=== PATIENT | male | born 1975 | race Caucasian/White ===

== ENCOUNTER 2023-11-17 09:50 | Outpatient (AMB) | payer OTHER, SELFPAY ==
--- NOTE | 2023-11-17 09:55 | A.OFFPC_ITS ---
Vital Signs 11/17/23 10:02 11/17/23 10:10 Height 5 ft 9 in Weight 205 lb 8 oz BMI 30.3 BP 144/90 H 126/88 Blood Pressure Location Rt brachial Rt brachial Position Sitting Sitting Respiration 16 Pulse 66 Pulse Source Pulse Oximeter Temp 98.3 F Temp Source Oral Pulse Oximetry (%) 97 Oxygen Delivery Method Room Air Intake Visit Reasons: [employer] BP F/U Intake Note: New patient visit Dive Master Required: No Allergies No Known Allergies Allergy (Verified 11/17/23 09:55) Medication List - Last Reconciled 11/17/23 by Hanh Webster MD clotrimazole-betamethasone 1-0.05 % 1 appl topical BID fluconazole 150 mg PO Q3D 2 doses No Known Home Meds prednisone 40 mg (2 x 20 mg) PO DAILY 5 days Tobacco use date assessed: 11/17/23 Dental Screening Dental Screen Date: 11/17/23 Did you have a dental visit in the last 12 months?: Yes Did you have a dental problem in the last 6 months where you did not have access to dental care?: No Was dental information given to patient?: Patient has dentist HPI HPI Comments History of Present Illness Details The patient is a 48 year old male with a past medical history of elevated BP, hyperlipidemia presenting to psychiatric hospital care Patient had labs for work in Aug. LDL at that time 150. He has been trying to eat a little healthier but has not started working out again like he has in the past. For the past 2 months he has been having episodes of left sided chest pressure. non exertional. no associated palpitations or shortness of breath. history of gerd this feels different. Has had a lot of stress recently. No overwhelming anxiety, no panic attacks. Family history of CAD, [place], ACS. EKG today Never colonoscopy. [facility] Medical History (Updated 11/17/23 @ 11:01 by Hanh Webster MD) Eczema GERD (gastroesophageal reflux disease) Hypercholesteremia Depression HTN (hypertension) Family History (Updated 11/17/23 @ 10:15 by Grecia Ball CMA) Mother Depression HTN (hypertension) Hypercholesteremia Cardiovascular disease Heart attack Brother Depression Father HTN (hypertension) Hypercholesteremia Lung cancer Other FH: mental illness Social History (Updated 11/17/23 @ 09:58 by Grecia Ball CMA) Housing: Apartment Patient Tobacco Use Status: Former Tobacco user Tobacco use type: Cigarette Years Smoked: 3 Highschool years e-Cigarette/Vaping Use: Never Used Second Hand Smoke Exposure: Yes (Past) service: Yes Current occupational status: employed Current occupation: [employer] Current occupational exposures/hazards: No Cognitive needs: No Hearing needs: No Vision needs: Yes (glasses) Questionnaire PHQ-9 Over the last 2 weeks, how often have you been bothered by any of the following problems? 1. Little interest or pleasure in doing things: several days 2. Feeling down, depressed, or hopeless: several days 3. Trouble falling or staying asleep, or sleeping too much: not at all 4. Feeling tired or having little energy: several days 5. Poor appetite or overeating: not at all 6. Feeling bad about yourself - or that you are a failure or have let yourself or your family down: not at all 7. Trouble concentrating on things, such as reading the newspaper or watching television: not at all 8. Moving or speaking so slowly that other people could have noticed. Or the opposite - being so fidgety or restless that you have been moving around a lot more than usual: not at all 9. Thoughts that you would be better off or of hurting yourself in some way: not at all Total score: 3 Depression Screening Interpretation: Positive Depression Screening Follow-up: Declines treatment Depression Screening Done: Yes [id number] - PHQ-9 Billing: Yes Source: Developed by Drs. Eyal Nicole, Kristy Garcia, Usman Azar and colleagues, with an educational tucker from [employer]. Thrive Questionnaire Date Thrive assessed: 11/17/23 I am a: Patient What is your living situation today?: I have a steady place to live Within the past 12 months, did the food you bought not last and you didn't have the money to get more?: Never true Within the past 12 months, did you worry whether your food would run out before you got money to buy more?: Never true Do you have trouble paying for medicines?: No Do you have trouble getting transportation to medical appointments?: No Do you have trouble paying your heating and electricity bill?: No Do you have trouble taking care of your child, family member or friend?: No Do you have trouble with day-to-day activities such as bathing, preparing meals, shopping, managing finances, etc.?: No Are you currently unemployed and looking for a job?: No Are you interested in more education?: No Please select the resources that you would like help with: None Currently or been in a relationship where the following occur: no concerns reported THRIVE Score: 0 AUDIT C Alcohol Use Questionnaire (AUDIT-C) 1. How often do you have a drink containing alcohol?: 2-4 times a month (4- 5 beers a weeks ) 2. How many drinks containing alcohol do you have on a typical day when you are drinking?: 3 or 4 3. How often do you have six or more drinks on one occasion?: Less than monthly Total Score: 4 LB-7 AMB Questionnaire LB-7 Date LB - 7 assessed: 11/17/23 Feeling nervous, anxious, or on edge: 1 = Several days Not being able to stop or control worryin = Several days Worrying too much about different things: 1 = Several days Trouble relaxin = Not at all Being so restless that it is hard to sit still: 0 = Not at all Becoming easily annoyed or irritable: 0 = Not at all Feeling afraid as if something awful might happen: 0 = Not at all Total LB-7 score (0-4 normal; 5-9 mild; 10-14 moderate; 15-21 severe): 3 Source: Developed by Drs. Eyal Nicole, Kristy Garcia, Usman Azar and colleagues, with an educational tucker from [employer]. LB-7 Assessment Billing LB-7 Assessment Tool: LB-7 Assessment 16985 Review of Systems Const Details: ROS CONSTITUTIONAL: Denies weight loss, fever and chills. HEENT: Denies changes in vision and hearing. RESPIRATORY: Denies SOB and cough. CV: Denies palpitations and CP GI: Denies abdominal pain, nausea, vomiting and diarrhea. : Denies dysuria and urinary frequency. MSK: Denies new myalgia and joint pain. SKIN: Denies rash and pruritus. NEUROLOGICAL: Denies headache PSYCHIATRIC: Denies recent changes in mood. Physical exam (Primary Care) Vital Signs: Last Vital Signs Temp 98.3 F 11/17/23 10:02 Pulse 66 11/17/23 10:02 Resp 16 11/17/23 10:02 BP 126/88 11/17/23 10:10 Pulse Ox 97 11/17/23 10:02 Oxygen Delivery Method Room Air 11/17/23 10:02 BMI result Body Mass Index 30.3 Tobacco/Smoking Status: Tobacco use Status Tobacco use date assessed 11/17/23 11/17/23 09:59 Patient Tobacco Use Status Former Tobacco user 11/17/23 09:59 Tobacco use type Cigarette 11/17/23 09:59 e-Cigarette/Vaping Use Never Used 11/17/23 09:59 PHQ-9: PHQ-9 Score PHQ-9: Total score 3 11/17/23 10:16 Depression Screening Interpretation: Positive Depression Screening Follow-up: Declines treatment Thrive Assessment: Date of Thrive Assessment Date Thrive assessed 11/17/23 11/17/23 10:16 Currently or been in a relationship where the following occur: no concerns reported Const Other: PHYSICAL EXAM: GENERAL: Alert and oriented x 3. NAD EYES: EOMI. Anicteric. HENT: Moist mucous membranes. LUNGS: Clear to auscultation bilaterally. CARDIOVASCULAR: Regular rate and rhythm. No murmur. No JVD. ABDOMEN: Soft, non-tender +bs EXTREMITIES: No edema. Non-tender. SKIN: No rashes or lesions. Warm. NEUROLOGIC: No focal neurological deficits. PSYCHIATRIC: Cooperative. Appropriate mood and affect Assessment and Plan Assessment & Plan (1) HTN (hypertension): Comment: Losartan sent. Discussed low salt diet. Increase exercise-at least 30 min cardio 5 times/wk Code(s): I10 - Essential (primary) hypertension Qualifiers: Hypertension type: primary hypertension Qualified Code(s): I10 - E ssential (primary) hypertension (2) Depression: Code(s): F32.A - Depression, unspecified Qualifiers: Depression Type: unspecified Qualified Code(s): F32.A - Depression, unspecified (3) Hypercholesteremia: Comment: Monitor labs. Lipids today. Increase cardiovascular exercise. diet low in saturated fats Code(s): E78.00 - Pure hypercholesterolemia, unspecified (4) GERD (gastroesophageal reflux disease): Code(s): K21.9 - Gastro-esophageal reflux disease without esophagitis Qualifiers: Esophagitis presence: without esophagitis Qualified Code(s): K21.9 - Gastro-esophageal reflux disease without esophagitis (5) Eczema: Code(s): L30.9 - Dermatitis, unspecified Qualifiers: Eczema type: unspecified Qualified Code(s): L30.9 - Dermatitis, unspecified (6) Chest pain: Comment: EKG reassuring. exercise stress test ordered Code(s): R07.9 - Chest pain, unspecified Qualifiers: Chest pain type: other chest pain Qualified Code(s): R07.89 - Other chest pain (7) Screening for colon cancer: Code(s): Z12.11 - Encounter for screening for malignant neoplasm of colon (8) Hypercholesteremia: Comment: Monitor labs. Lipids today. Increase cardiovascular exercise. diet low in saturated fats Code(s): E78.00 - Pure hypercholesterolemia, unspecified (9) Eczema: Code(s): L30.9 - Dermatitis, unspecified (10) Polyuria: Code(s): R35.89 - Other polyuria (11) Chest pain: Comment: EKG reassuring. exercise stress test ordered Code(s): R07.9 - Chest pain, unspecified (12) Screening for colon cancer: Code(s): Z12.11 - Encounter for screening for malignant neoplasm of colon Orders: Orders Lipid Panel Today E78.00 - Pure hypercholesterolemia, unspecified, F32.A - Depression, unspecified, I10 - Essential (primary) hypertension, K21.9 - Gastro- esophageal reflux disease without esophagitis, L30.9 - Dermatitis, unspecified ECG 12 lead EKG Today E78.00 - Pure hypercholesterolemia, unspecified, F32.A - Depression, unspecified, I10 - Essential (primary) hypertension, K21.9 - Gastro- esophageal reflux disease without esophagitis, L30.9 - Dermatitis, unspecified Vitamin B12 and Folate Today E78.00 - Pure hypercholesterolemia, unspecified, F32.A - Depression, unspecified, I10 - Essential (primary) hypertension, K21.9 - Gastro-esophageal reflux disease without esophagitis, L30.9 - Dermatitis, unspecified CA stress test Today K21.9 - Gastro-esophageal reflux disease without esophagitis, L30.9 - Dermatitis, unspecified, R07.9 - Chest pain, unspecified Hemoglobin A1c Today R07.9 - Chest pain, unspecified, R35.89 - Other polyuria, Z12.11 - Encounter for screening for malignant neoplasm of colon Complete Blood Count Auto Diff Today E78.00 - Pure hypercholesterolemia, unspecified, F32.A - Depression, unspecified, I10 - Essential (primary) hypertension, K21.9 - Gastro-esophageal reflux disease without esophagitis, L30.9 - Dermatitis, unspecified Testosterone, Free/Total Today E78.00 - Pure hypercholesterolemia, unspecified, F32.A - Depression, unspecified, I10 - Essential (primary) hypertension, K21.9 - Gastro-esophageal reflux disease without esophagitis, L30.9 - Dermatitis, unspecified Comprehensive Met. Panel Today E78.00 - Pure hypercholesterolemia, unspecified, F32.A - Depression, unspecified, I10 - Essential (primary) hypertension, K21.9 - Gastro-esophageal reflux disease without esophagitis, L30.9 - Dermatitis, unspecified TSH reflex Free T4 Today E78.00 - Pure hypercholesterolemia, unspecified, F32.A - Depression, unspecified, I10 - Essential (primary) hypertension, K21.9 - Gastro-esophageal reflux disease without esophagitis, L30.9 - Dermatitis, unspecified Lyme IgG/IgM w/reflex to WB Today E78.00 - Pure hypercholesterolemia, unspecified, K21.9 - Gastro-esophageal reflux disease without esophagitis, L30.9 - Dermatitis, unspecified, R07.9 - Chest pain, unspecified Prostate Specific Antigen Today R35.89 - Other polyuria Referrals Gastroenterology Referral R07.9 - Chest pain, unspecified, Z12.11 - Encounter for screening for malignant neoplasm of colon Medications: New clotrimazole-betamethasone 1-0.05 % 1 appl topical BID 45 grams 2RF fluconazole 150 mg PO Q3D 2 tabs 0RF losartan 25 mg PO DAILY 90 tabs 3RF prednisone 40 mg (2 x 20 mg) PO DAILY 5 days 10 tabs 0RF Coding Level of Care Code Est Pt Level 5 (35713) Complex EM visit Add On G2211 Diagnoses Primary hypertension I10 Hypertension type: primary hypertension Depression, unspecified depression type F32.A Depression Type: unspecified Hypercholesteremia E78.00 Gastroesophageal reflux disease without esophagitis K21.9 Esophagitis presence: without esophagitis Eczema, unspecified type L30.9 Eczema type: unspecified Other chest pain R07.89 Chest pain type: other chest pain Screening for colon cancer Z12.11 Polyuria R35.89 Additional Codes LB-7 Assessment Billing - LB-7 Assessment Tool: LB-7 Assessment [id number] ([id number])
[2023-11-17 10:02] VITALS: BP 144/90; PULSE 66; RESP 16; TEMP 36.8; O2SAT 97; BMI 30.3
[2023-11-17 10:10] VITALS: BP 126/88
== END 2023-11-17 10:58 | disposition home or self-care (01) ==
PROVIDERS: PCP Internal Medicine; Visit Provider Internal Medicine
DX: I10 Essential (primary) hypertension (principal); F32.A Depression, unspecified; E78.00 Pure hypercholesterolemia, unspecified; R07.9 Chest pain, unspecified; K21.9 Gastro-esophageal reflux disease without esophagitis; L30.9 Dermatitis, unspecified; Z12.11 Encounter for screening for malignant neoplasm of colon; R35.89 Other polyuria
CPT/HCPCS: 93000; 99214; G2211

== ENCOUNTER 2023-11-17 11:14 | Outpatient (REF) | payer OTHER, SELFPAY ==
[2023-11-17 14:28] LABS: MANUAL DIFF FLAG NO
[2023-11-17 14:43] LABS: Basophils Absolute Auto 0.1 X10*3/uL (0.0-0.2); Basophils Percent Auto 1.6 % (0-2); Eosinophils Absolute Auto 0.3 X10*3/uL (0.0-0.4); Eosinophils Percent Auto 5.5 % (0-4); Hematocrit 47.8 % (42.0-52.0); Hemoglobin 16.8 g/dl (14.0-18.0); Imm Gran Abs Auto 0.02 X10*3/uL (0.00-0.03); Imm Gran Pct Auto 0.4 % (0.0-0.4); Lymphocytes Absolute Auto 1.6 X10*3/uL (1.2-4.9); Lymphocytes Percent Auto 31.2 % (20-40); Mean Corpuscular HGB Conc 35.1 g/dl (31.0-36.0); Mean Corpuscular Hemoglobin 33.8 pg (27.0-33.0); Mean Corpuscular Volume 96.2 fL (80.0-98.0); Mean Platelet Volume 11.2 fL (9.4-12.4); Monocytes Absolute Auto 0.5 X10*3/uL (0.1-1.2); Monocytes Percent Auto 9.9 % (2-11); Neutrophils Absolute Auto 2.6 x10*3/uL (2.0-8.3); Neutrophils Percent Auto 51.4 % (45-73); Platelet Count 204 X10*3/uL (160-400); Red Blood Count 4.97 X10*6/uL (4.60-5.80); Red Cell Distribution Width 11.8 % (11.0-16.0); White Blood Count 5.1 X10*3/uL (4.8-10.8)
[2023-11-17 15:00] LABS: Alanine Aminotransferase 27 U/L (0-40); Albumin Level 4.6 g/dL (3.5-5.0); Alkaline Phosphatase 56 U/L (39-117); Anion Gap 16 (12-20); Aspartate Amino Transferase 24 U/L (5-37); Bilirubin Total 0.7 mg/dL (0.0-1.0); Blood Urea Nitrogen 5 mg/dL (9-16); Calcium 10.3 mg/dL (8.4-10.2); Carbon Dioxide 25 mmol/L (22-29); Chloride 103 mmol/L (96-108); Cholesterol 199 mg/dL (<200); Estimated Average Glucose 91 mg/dL; Estimated Glomerular Filt Rate > 60; Glucose Random 88 mg/dL (60-115); HDL Cholesterol 40 mg/dL (>40); Hemoglobin A1c % 4.8 % (<6.0); LDL Cholesterol Calculated 127 mg/dL (<100); Potassium 4.5 mmol/L (3.3-5.1); Sodium 139 mmol/L (135-145); Total Protein 7.8 g/dL (6.5-8.0); Triglycerides 163 mg/dL (<150)
[2023-11-17 15:18] LABS: TSH reflex Free T4 1.68 uIU/mL (0.32-4.0)
[2023-11-17 15:27] LABS: Folate 7.2 ng/mL (> or = 4.0); Prostate Specific Antigen 0.84 ng/mL (<0.05-4.0); Vitamin B12 313 pg/mL (200-900)
[2023-11-19 06:49] LABS: Lyme Abs Screen <0.90 index
[2023-11-22 19:53] LABS: Testosterone, Free 54.3 pg/mL (35.0-155.0); Testosterone, Total 357 ng/dL (250-1100)
== END 2023-11-17 11:15 | disposition home or self-care (01) ==
LOC: HO.WFDLDS 11:14
PROVIDERS: Visit Provider Internal Medicine
DX: L30.9 Dermatitis, unspecified (principal); K21.9 Gastro-esophageal reflux disease without esophagitis; E78.00 Pure hypercholesterolemia, unspecified; F32.A Depression, unspecified; I10 Essential (primary) hypertension; Z12.11 Encounter for screening for malignant neoplasm of colon; R35.89 Other polyuria; R07.9 Chest pain, unspecified; Z12.5 Encounter for screening for malignant neoplasm of prostate
CPT/HCPCS: 36415; 80053; 80061; 82607; 82746; 83036; 84153; 84402; 84403; 84443; 85025; 86617; 86618

== ENCOUNTER → 2023-11-21 08:10 | Outpatient (REF) | payer OTHER, SELFPAY ==
--- NOTE | 2023-11-21 08:14 | CA_ITS ---
Acquisition Time: 2023-11-21 08:26:06 Total Exercise Time: 00:07:42 Test Indications: CHEST PAIN Medications: Protocol: CECILIA Max HR: 137 BPM 79% of Pred: 172 BPM Max BP: 228/088 mmHG Max Work Load: 9.6 METS Exercise stress test exercise 7 min 42 sec of Cecilia protocol achieving 79% MPHR terminated due to BP, without anginal symptoms, with isolated PVCs, with hypernteisive response - max BP 228/88, without EKG changes. Blood pressure returned to baseline with rest. Test reviewed with Dr. Cardoza. Patient did not take blood pressure medication morning of test. Referred By: Hanh Webster Overread By: Ginger Biggs
== END ==
LOC: HO.CARD 08:10
PROVIDERS: PCP Internal Medicine; Visit Provider Internal Medicine
DX: R07.9 Chest pain, unspecified (principal); L30.9 Dermatitis, unspecified; K21.9 Gastro-esophageal reflux disease without esophagitis
CPT/HCPCS: 93017

== ENCOUNTER → 2023-11-21 08:14 | Outpatient (BNV) | payer OTHER, SELFPAY | PROVIDERS: PCP Internal Medicine; Visit Provider Nurse Practitioner | DX: R03.0 Elevated blood-pressure reading, without diagnosis of hypertension (principal); I49.3 Ventricular premature depolarization | CPT/HCPCS: 93016; 93018 ==

== ENCOUNTER → 2023-12-19 08:39 | Outpatient (REF) | payer OTHER, SELFPAY ==
--- NOTE | 2023-12-19 08:43 | CA_ITS ---
Acquisition Time: 2023-12-19 08:48:31 Total Exercise Time: 00:08:44 Test Indications: R94.39 Medications: SEE H Protocol: CECILIA Max HR: 148 BPM 86% of Pred: 172 BPM Max BP: 168/064 mmHG Max Work Load: 10.1 METS Exercise stress test exercise 8 min 44 sec of Cecilia protocol achieving 86% MPHR, without anginal symptoms, without arhrythmias, with normotensive response to exercise. without EKG changes. Test reviewed with Dr. Pan Referred By: Hanh Webster Overread By: Ginger Biggs
== END ==
LOC: HO.CARD 08:39
PROVIDERS: PCP Internal Medicine; Visit Provider Internal Medicine
DX: R07.89 Other chest pain (principal); R94.39 Abnormal result of other cardiovascular function study; I10 Essential (primary) hypertension
CPT/HCPCS: 93017

== ENCOUNTER → 2023-12-19 08:43 | Outpatient (BNV) | payer OTHER, SELFPAY | PROVIDERS: PCP Internal Medicine; Visit Provider Nurse Practitioner | DX: R94.31 Abnormal electrocardiogram [ECG] [EKG] (principal) | CPT/HCPCS: 93016; 93018 ==

== ENCOUNTER 2024-01-02 08:46 | Outpatient (AMB) | payer OTHER, SELFPAY ==
--- NOTE | 2024-01-02 08:49 | A.OFFPC_ITS ---
Vital Signs 01/02/24 08:55 Weight 196 lb 8 oz BP 110/64 Blood Pressure Location Rt brachial Position Sitting Respiration 16 Pulse 76 Pulse Source Pulse Oximeter Temp 97.8 F Temp Source Temporal Artery Scan Pulse Oximetry (%) 97 Oxygen Delivery Method Room Air Intake Visit Reasons: follow up on BP Meds Intake Note: patient here to follow up on blood pressure meds. he states he thinks the meds are working. [employer] Required: No Allergies No Known Allergies Allergy (Verified 01/02/24 08:53) Medication List - Last Reconciled 01/02/24 by Hanh Webster MD clotrimazole-betamethasone 1-0.05 % 1 appl topical BID losartan 25 mg PO DAILY omeprazole 20 mg PO DAILY 90 days Tobacco use date assessed: 11/17/23 Dental Screening Dental Screen Date: 11/17/23 HPI HPI Comments History of Present Illness Details The patient is a 48 year old male with a past medical history of elevated BP, hyperlipidemia presenting for follow up At first visit..For the past 2 months he has been having episodes of left sided chest pressure. non exertional. no associated palpitations or shortness of breath. history of gerd this feels different. Has had a lot of stress recently. No overwhelming anxiety, no panic attacks. Family history of CAD, [place], ACS. EKG today. His BP was elevated at the time. Started on losartan. Less frequent and severe episodes though still do happen. Reports prior and sustained relief of separate heartburn symptoms on omeprezole. Has lost 10 pounds. stress test normal. upcoming cardiology visit. Thereafter sees GI Never colonoscopy. ROS see HPI PHYSICAL EXAM: GENERAL: Alert and oriented x 3. NAD EYES: EOMI. Anicteric. HENT: Moist mucous membranes. No scleral icterus. No cervical lymphadenopathy. LUNGS: Clear to auscultation bilaterally. CARDIOVASCULAR: Regular rate and rhythm. No murmur. No JVD. ABDOMEN: Soft, non-tender +bs EXTREMITIES: No edema. Non-tender. SKIN: No rashes or lesions. Warm. NEUROLOGIC: No focal neurological deficits. CN II-XII grossly intact PSYCHIATRIC: Cooperative. Appropriate mood and affect [facility] Medical History (Updated 01/04/24 @ 10:51 by Hanh Webster MD) Eczema GERD (gastroesophageal reflux disease) Hypercholesteremia Depression HTN (hypertension) Family History (Updated 11/17/23 @ 10:15 by Grecia Ball CMA) Mother Depression HTN (hypertension) Hypercholesteremia Cardiovascular disease Heart attack Brother Depression Father HTN (hypertension) Hypercholesteremia Lung cancer Other FH: mental illness Social History (Updated 11/17/23 @ 09:58 by Grecia Ball CMA) Housing: Apartment Patient Tobacco Use Status: Former Tobacco user Tobacco use type: Cigarette Years Smoked: 3 Highschool years e-Cigarette/Vaping Use: Never Used Second Hand Smoke Exposure: Yes (Past) service: Yes Current occupational status: employed Current occupation: [employer] Current occupational exposures/hazards: No Cognitive needs: No Hearing needs: No Vision needs: Yes (glasses) Questionnaire Thrive Questionnaire Date Thrive assessed: 11/17/23 LB-7 AMB Questionnaire LB-7 Date LB - 7 assessed: 11/17/23 Source: Developed by Drs. Eyal Nicole, Kristy Garcia, Usman Azar and colleagues, with an educational tucker from [employer]. Physical exam (Primary Care) Vital Signs: Last Vital Signs Temp 97.8 F 01/02/24 08:55 Pulse 76 01/02/24 08:55 Resp 16 01/02/24 08:55 BP 110/64 01/02/24 08:55 Pulse Ox 97 01/02/24 08:55 Oxygen Delivery Method Room Air 01/02/24 08:55 Tobacco/Smoking Status: Tobacco use Status Tobacco use date assessed 11/17/23 01/02/24 08:51 Patient Tobacco Use Status Former Tobacco user 01/02/24 08:51 Tobacco use type Cigarette 01/02/24 08:51 e-Cigarette/Vaping Use Never Used 01/02/24 08:51 Thrive Assessment: Date of Thrive Assessment Date Thrive assessed 11/17/23 01/02/24 08:51 Assessment and Plan Assessment & Plan (1) HTN (hypertension): Code(s): I10 - Essential (primary) hypertension Qualifiers: Hypertension type: primary hypertension Qualified Code(s): I10 - Essential (primary) hypertension Plan: controlled. continue losartan. congratulated on interval weight loss. upcoming cardiology (2) Hypercholesteremia: Code(s): E78.00 - Pure hypercholesterolemia, unspecified (3) Chest pain: Code(s): R07.9 - Chest pain, unspecified Qualifiers: Chest pain type: other chest pain Qualified Code(s): R07.89 - Other chest pain Plan: pending cards consult, GI consult (4) Exertional dyspnea: Code(s): R06.09 - Other forms of dyspnea Orders: Orders CA echo transthoracic complete 01/02/24 R06.09 - Other forms of dyspnea, R07.89 - Other chest pain Medications: New omeprazole 20 mg PO DAILY 90 caps 3RF 90 days Coding Level of Care Code Est Pt Level 4 (06244) Diagnoses Primary hypertension I10 Hypertension type: primary hypertension Hypercholesteremia E78.00 Other chest pain R07.89 Chest pain type: other chest pain Exertional dyspnea R06.09
[2024-01-02 08:55] VITALS: BP 110/64; PULSE 76; RESP 16; TEMP 36.6; O2SAT 97
== END 2024-01-02 09:24 | disposition home or self-care (01) ==
PROVIDERS: PCP Internal Medicine; Visit Provider Internal Medicine
DX: I10 Essential (primary) hypertension (principal); E78.00 Pure hypercholesterolemia, unspecified; R07.89 Other chest pain; R06.09 Other forms of dyspnea
CPT/HCPCS: 99214

== ENCOUNTER 2024-02-24 08:56 | Outpatient (AMB) | payer OTHER, SELFPAY ==
--- NOTE | 2024-02-24 09:07 | MHC.OFFVIS ---
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 More recently he has been noticing symptoms of exertional shortness of breath when he climbs 3 flights of stairs. He also was getting dull chest ache. He was therefore referred for a stress test which was done earlier but was stopped prematurely due to hypertensive blood pressure response at that time he had dull chest ache and shortness of breath and EKG was negative for ischemia. Subsequently was started on losartan 20 mg daily and had a follow-up stress test very exercise for about 10 Mets and had negative EKG and no significant symptoms with adequate blood pressure response on losartan therapy. Since then he said he continues to have exertional shortness of breath going up 3 flights of stairs. He denies any orthopnea, PND, leg edema. Denies any prolonged palpitation irregular heartbeat. Says that he was told in the past that he was snoring, does not sleep well and has daytime somnolence. He also does not monitor blood pressure at home. He has cut down the salt in his diet. He said he is concerned about the symptoms of shortness of breath chest discomfort. He denies any lightheadedness, syncope. [facility] Medical History Eczema GERD (gastroesophageal reflux disease) Hypercholesteremia Depression HTN (hypertension) Family History Mother Depression HTN (hypertension) Hypercholesteremia Cardiovascular disease Heart attack Brother Depression Father HTN (hypertension) Hypercholesteremia Lung cancer Other FH: mental illness Social History Housing: Apartment Alcohol intake: current Alcohol intake frequency: holidays/special occasions only Patient Tobacco Use Status: Former Tobacco user Tobacco use type: Cigarette Years Smoked: 3 Highschool years e-Cigarette/Vaping Use: Never Used Second Hand Smoke Exposure: Yes (Past) service: Yes Current occupational status: employed Current occupation: [employer] Current occupational exposures/hazards: No Cognitive needs: No Hearing needs: No Vision needs: Yes (glasses) Review of Systems Const Denies weakness ENT Denies dizziness Card Reports chest pain, Reports chest pain at rest, Reports chest pain with activity, Denies syncope, Denies rapid heart rate, Denies pedal edema, Denies edema, Denies leg edema, Denies lightheadedness, Denies palpitations, Denies dyspnea, Denies dyspnea on exertion and Denies orthopnea Resp Denies cough, Denies dyspnea and Denies dyspnea on exertion GI Denies hematochezia and Denies change in stool character Musc Denies abnormal gait, Denies muscle cramps, Denies muscle weakness, Denies numbness, Denies radiating pain into limb and Denies tingling Neuro Denies abnormal gait, Denies dizziness, Denies syncope, Denies numbness, Denies tingling and Denies weakness Endo Denies palpitations Physical Exam Vital Signs: Last Vital Signs Pulse 91 02/24/24 09:13 BP 124/60 02/24/24 09:13 BMI result Body Mass Index 28.6 Const General: cooperative, comfortable, no acute distress, well developed, alert, awake and Physically active Nutritional Appearance: well nourished and overweight Orientation/consciousness: patient oriented x3 Limitations: no limitations HEENT Head: Yes normocephalic and Yes atraumatic Neck Neck: Yes trachea midline, Yes supple and Yes no JVD Resp Effort & Inspection: normal respiratory effort Auscultation: clear to auscultation bilaterally Cardio Jugular venous distension: no JVD Palpation: normal PMI Rate: regular rate Rhythm: regular rhythm Heart sounds: S1 normal heart sound present, S2 normal heart sound present, no click, no gallops, no murmurs and no rubs GI Auscultation: normal bowel sounds Skin General skin exam: no rashes or lesions noted Neuro General: patient oriented x3 and no focal motor deficits Extrem General: Yes no clubbing, cyanosis or edema Psych Appearance: grossly normal Office Procedures EKG Details: EKG shows normal sinus rhythm normal EKG 61126-[id number], Complete Assessment & Plan Assessment & Plan (1) Exertional dyspnea: Code(s): R06.09 - Other forms of dyspnea Category: Medical Plan: Exertional shortness of breath in this middle-aged man with normal stress test at good workload, likelihood of obstructive coronary artery disease is low. See below for for further workup. I would suggest him to undergo an echocardiogram to evaluate for LV systolic and diastolic function to evaluate for hypertensive heart disease and pulmonary hypertension. If echocardiogram is within reasonable limits, consider doing a pulmonary function test to evaluate for underlying lung issues given exposure to passive smoking with his dad. (2) HTN (hypertension): Code(s): I10 - Essential (primary) hypertension Category: Medical Qualifiers: Hypertension type: primary hypertension Qualified Code(s): I10 - Essential (primary) hypertension Plan: Hypertension, recent onset could be the reason for his exertional shortness of chest discomfort. Since starting losartan he said his chest discomfort has improved and shortness of breath is improved. Still probably could have I would hypertensive blood pressure response at home. Advised to monitor blood pressure at home and maintain a log. May need further uptitration medication. Recent onset hypertension as well as symptoms suggestive of sleep apnea would suggest a home sleep study to further assess for the same. Echocardiogram as above. Given his risk factors and is high stress job I would suggest him to undergo coronary calcium score to screen for underlying coronary atherosclerosis and guide treatment. If coronary calcium score is 0 I would suggest to continue to pursue lifestyle modification. If coronary calcium score is extremely elevated would need further testing including coronary angiogram. Will follow with him in 6 weeks time, sooner p.r.n.. Thank you for allowing me to partake in his care Orders: Orders CA echo transthoracic complete Today R06.09 - Other forms of dyspnea CT Coronary Calcium Score 1 Week I10 - Essential (primary) hypertension RT home sleep study Today I10 - Essential (primary) hypertension, R40.0 - Somnolence Coding Level of Care Code New Pt Level 4 (82994) Diagnoses Exertional dyspnea R06.09 Primary hypertension I10 Hypertension type: primary hypertension CPT Codes EKG - CPT: 09511-[id number], Complete ([id number])
[2024-02-24 09:13] VITALS: BP 124/60; PULSE 91; BMI 28.6
== END 2024-02-24 09:34 | disposition home or self-care (01) ==
LOC: HO.HCS 08:56
PROVIDERS: PCP Internal Medicine; Visit Provider Internal Medicine Cardiovascular Disease
DX: R06.09 Other forms of dyspnea (principal); I10 Essential (primary) hypertension
CPT/HCPCS: 93010; 99204

== ENCOUNTER → 2024-02-24 08:56 | Outpatient (BNVA) | payer OTHER, SELFPAY | PROVIDERS: PCP Internal Medicine; Visit Provider Internal Medicine Cardiovascular Disease | DX: R06.09 Other forms of dyspnea (principal); I10 Essential (primary) hypertension | CPT/HCPCS: 93005 ==

== ENCOUNTER → 2024-03-30 08:38 | Outpatient (REF) | payer OTHER, SELFPAY ==
--- NOTE | 2024-03-30 08:41 | CA_ITS ---
Transthoracic Echocardiogram Patient (Last, First, Middle): Zach Owusu, Gender: Male Date of : 1975 Age: 48 Procedure Date: 03/30/2024 Procedure Type: Transthoracic Echocardiogram Location: OP Height: 175.26 cm Weight: 87.09 kg BSA: 2.03 m2 Heart Rate: bpm BP: 128 / 86 mmHg Business Case Analyst: ANGEL Referring MD: Rolando Cardoza MD Symptoms: R06.09 - Other forms of dyspnea Study Quality: Adequate ECG Rhythm: Sinus Conclusions: - The left ventricular systolic function is normal. The calculated ejection fraction is 64% by biplane method. - No obvious valvular pathology seen on this study. Findings Left Ventricle Normal left ventricular cavity size. The left ventricular systolic function is normal. The calculated ejection fraction is 64% by biplane method. There is no evidence of regional wall motion abnormalities. Diastolic function is normal for age. There is mild septal asymmetric hypertrophy. LV peak GLS 20.3%. Right Ventricle Normal right ventricular cavity size and systolic function. Atria Both atria are normal in size. Aortic Valve There is a normal trileaflet aortic valve. There is no aortic valve stenosis. There is no aortic valve regurgitation. Mitral Valve The mitral valve appears normal. There is no mitral valve regurgitation. There is no mitral valve stenosis. Pulmonic Valve The pulmonic valve is likely normal. Tricuspid Valve There is mild tricuspid valve regurgitation. There is no evidence of pulmonary hypertension. Great Vessels The asc aorta and aortic arch are normal in size. Venous The inferior vena cava is normal in size and collapses greater than 50% with inspiration. Pericardium/Pleural There is no evidence of pericardial effusion. Prior Study Comparison No prior study available for comparison. Recommendations, Care & Conclusions No obvious valvular pathology seen on this study. Measurements 2D Linear Measurements IVSd: 1.14 0.6-0.9/0.6-1.0 cm LVIDd: 5.06 3.9-5.3/4.2-5.9 cm LVIDd Index: 2.49 2.4-3.2/2.2-3.1 cm/m2 LVIDs: 2.94 2.0-3.6 cm LVPWd: 0.96 0.7-1.1 cm LA Diam: 3.90 2.7-3.8/3.0-4.0 cm LAIDs Index: 1.92 1.5-2.3 cm/m2 LV Mass: 246.69 67-162/88-224 g LV Mass Index: 121.52 43-95/49-115 g/m2 LVOT Diam: 2.20 3.0+(-)1.3 cm 2D Systolic Function EF 4C: 66.60 >55% EF 2C: 63.90 >55% EF BiP: 63.70 >55% Mitral Valve MV Pk E: 0.95 MV PK A: 0.58 MV Decel Time: 187.00 E/A: 1.60 E'Lateral: 10.40 E'Medial: 7.94 E/E' Med: 11.90 E/E' Lat: 9.10 PHT: 55.00 MVA PHT: 4.00 Decel [place]: 5.05 Aortic Valve AoV Pk Salvatore: 1.62 AoV Mn Salvatore: 1.06 AoV VTI: 0.31 AoV Pk Grad: 10.00 Aov Mn Grad: 5.00 PANDA Cont.VTI: 3.05 LVOT LVOT Pk Salv[place]: 1.44 LVOT Mn Salvatore: 0.87 LVOT VTI: 0.25 LVOT Pk Grad: 8.00 LVOT Mn Grad: 4.00 LVOT Diam: 2.20 LVOT Area: 3.80 Diastolic Function MV Pk E: 0.95 MV Pk A: 0.58 E/A: 1.60 E'Medial: 7.94 E/E' Med: 11.90 E' Laterial: 10.40 E/E' Lat: 9.10 Right Ventricle TAPSE (mm): 26.00 TVS' Salvatore: 15.80 Tricuspid Valve TR Pk Salvatore: 2.21 TR Pk Grad: 20.00 RA Press: 3.00 RVSP: 23.00 Great Vessels Aorta Sinus of Valsalva: 3.39 2.0-3.[address] [place]: 2.75 1.7-3.4 cm Ao Asc: 3.30 2.1-3.4 cm Ao Arch: 2.90 Updated in Other Vendor System with Status of Final Moises Pan MD electronically signed on 03/31/2024 1:49:03 PM with status of Final
== END ==
LOC: HO.CARD 08:38
PROVIDERS: PCP Internal Medicine; Visit Provider Internal Medicine Cardiovascular Disease
DX: R06.09 Other forms of dyspnea (principal)
CPT/HCPCS: 93306; 93356

== ENCOUNTER → 2024-03-30 08:41 | Outpatient (BNV) | payer OTHER, SELFPAY | PROVIDERS: PCP Internal Medicine; Visit Provider Internal Medicine | DX: I36.1 Nonrheumatic tricuspid (valve) insufficiency (principal); I42.2 Other hypertrophic cardiomyopathy | CPT/HCPCS: 93306; 93356 ==

== ENCOUNTER 2025-02-28 15:41 | Outpatient (AMB) | payer OTHER, SELFPAY ==
--- NOTE | 2025-02-28 16:01 | A.OFFPC_ITS ---
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: No Allergies No Known Allergies Allergy (Verified 01/02/24 08:53) Tobacco use date assessed: 02/28/25 Dental Screening Dental Screen Date: 02/28/25 Did you have a dental visit in the last 12 months?: Yes Did you have a dental problem in the last 6 months where you did not have access to dental care?: No Was dental information given to patient?: Patient has dentist HPI HPI Comments History of Present Illness Details The patient is a 49 year old male with a past medical history of hypertension, hyperlipidemia, GERDlow testosterone, presenting for physical exam CV: Blood pressure controlled on losartan. Saw cardiology. Patient was supposed to undergo coronary calcium. It was rescheduled and he has not heard back for rescheduling. At first visit..For the past 2 months he has been having episodes of left sided chest pressure. non exertional. no associated palpitations or shortness of breath. history of gerd this feels different. Has had a lot of stress recently. No overwhelming anxiety, no panic attacks. Family history of CAD, OR, ACS. EKG today. H GERD is stable on omeprazole Tinea cruris-interval improvement without resolution on topical therapy. Never colonoscopy-needs to be schedule ROS see HPI PHYSICAL EXAM: GENERAL: Alert and oriented x 3. NAD EYES: EOMI. Anicteric. HENT: Moist mucous membranes. No scleral icterus. No cervical lymphadenopathy. LUNGS: Clear to auscultation bilaterally. CARDIOVASCULAR: Regular rate and rhythm. No murmur. No JVD. ABDOMEN: Soft, non-tender +bs : Normal penis and testes EXTREMITIES: No edema. Non-tender. SKIN: No rashes or lesions. Warm. NEUROLOGIC: No focal neurological deficits. CN II-XII grossly intact PSYCHIATRIC: Cooperative. Appropriate mood and affect [facility] Medical History Eczema GERD (gastroesophageal reflux disease) Hypercholesteremia Depression HTN (hypertension) Family History Mother Depression HTN (hypertension) Hypercholesteremia Cardiovascular disease Heart attack Brother Depression Father HTN (hypertension) Hypercholesteremia Lung cancer Other FH: mental illness Social History Housing: Apartment Alcohol intake: current Alcohol intake frequency: holidays/special occasions only Patient Tobacco Use Status: Former Tobacco user Tobacco use type: Cigarette Years Smoked: 3 Highschool years e-Cigarette/Vaping Use: Never Used Second Hand Smoke Exposure: Yes (Past) service: Yes Current occupational status: employed Current occupation: [employer] Current occupational exposures/hazards: No Cognitive needs: No Hearing needs: No Vision needs: Yes (glasses) Questionnaire PHQ-9 Over the last 2 weeks, how often have you been bothered by any of the following problems? 1. Little interest or pleasure in doing things: not at all 2. Feeling down, depressed, or hopeless: not at all 3. Trouble falling or staying asleep, or sleeping too much: not at all 4. Feeling tired or having little energy: not at all 5. Poor appetite or overeating: not at all 6. Feeling bad about yourself - or that you are a failure or have let yourself or your family down: not at all 7. Trouble concentrating on things, such as reading the newspaper or watching television: not at all 8. Moving or speaking so slowly that other people could have noticed. Or the opposite - being so fidgety or restless that you have been moving around a lot more than usual: not at all 9. Thoughts that you would be better off or of hurting yourself in some way: not at all Total score: 0 Depression Screening Interpretation: Negative Depression Screening Done: Yes 90022 - PHQ-9 Billing: Yes Source: Developed by Drs. Eyal Nicole, Kristy Garcia, Usman Azar and colleagues, with an educational tucker from [employer]. Thrive Questionnaire Date Thrive assessed: 02/23/25 I am a: Patient What is your living situation today?: I have a steady place to live Within the past 12 months, did the food you bought not last and you didn't have the money to get more?: Never true Within the past 12 months, did you worry whether your food would run out before you got money to buy more?: Never true Do you have trouble paying for medicines?: No Do you have trouble getting transportation to medical appointments?: No Do you have trouble paying your heating and electricity bill?: No Do you have trouble taking care of your child, family member or friend?: No Do you have trouble with day-to-day activities such as bathing, preparing meals, shopping, managing finances, etc.?: No Are you currently unemployed and looking for a job?: No Are you interested in more education?: No Please select the resources that you would like help with: None Currently or been in a relationship where the following occur: No concerns reported THRIVE Score: 0 AUDIT C Alcohol Use Questionnaire (AUDIT-C) 1. How often do you have a drink containing alcohol?: 2-3 times a week 2. How many drinks containing alcohol do you have on a typical day when you are drinking?: 1 or 2 3. How often do you have six or more drinks on one occasion?: Monthly Total Score: 5 LB-7 AMB Questionnaire LB-7 Date LB - 7 assessed: 11/17/23 Feeling nervous, anxious, or on edge: 0 = Not at all Not being able to stop or control worryin = Not at all Worrying too much about different things: 0 = Not at all Trouble relaxin = Not at all Being so restless that it is hard to sit still: 0 = Not at all Becoming easily annoyed or irritable: 0 = Not at all Feeling afraid as if something awful might happen: 0 = Not at all Total LB-7 score (0-4 normal; 5-9 mild; 10-14 moderate; 15-21 severe): 0 Source: Developed by Drs. Eyal Nicole, Kristy Garcia, Usman Azar and colleagues, with an educational tucker from [employer]. LB-7 Assessment Billing LB-7 Assessment Tool: LB-7 Assessment 48051 Physical exam (Primary Care) Vital Signs: Last Vital Signs Pulse 94 02/28/25 16:04 Resp 14 02/28/25 16:04 BP 128/76 02/28/25 16:04 Pulse Ox 95 02/28/25 16:04 Oxygen Delivery Method Room Air 02/28/25 16:04 BMI result Body Mass Index 29.2 Tobacco/Smoking Status: Tobacco use Status Tobacco use date assessed 02/28/25 02/28/25 16:07 Patient Tobacco Use Status Former Tobacco user 02/28/25 16:07 Tobacco use type Cigarette 02/28/25 16:07 e-Cigarette/Vaping Use Never Used 02/28/25 16:07 PHQ-9: PHQ-9 Score PHQ-9: Total score 0 02/28/25 16:12 Depression Screening Interpretation: Negative Thrive Assessment: Date of Thrive Assessment Date Thrive assessed 02/23/25 02/28/25 16:07 Currently or been in a relationship where the following occur: No concerns reported Coding Level of Care Code Est Pt Prev Care 40-64y(18546) Diagnoses Physical exam Z00.00 Primary hypertension I10 Hypertension type: primary hypertension Hypercholesteremia E78.00 Additional Codes LB-7 Assessment Billing - LB-7 Assessment Tool: LB-7 Assessment 55609 ([id number]) PHQ-9 - 78815 - PHQ-9 Billing: Yes ([id number]) Assessment & Plan Assessment & Plan (1) Physical exam: Code(s): Z00.00 - Encounter for general adult medical examination without abnormal findings (2) HTN (hypertension): Code(s): I10 - Essential (primary) hypertension Category: Medical Qualifiers: Hypertension type: primary hypertension Qualified Code(s): I10 - Essential (primary) hypertension (3) Hypercholesteremia: Code(s): E78.00 - Pure hypercholesterolemia, unspecified Category: Medical Plan 49 year old male for CPE Interval history reviewed No CV symptoms. Number provided to call to reschedule coronary calcium Labs ordered. taking testosterone supplement colonoscopy is overdue-referral to GI placed Orders: Orders Testosterone, Free/Total 02/28/25 E34.9 - Endocrine disorder, unspecified Complete Blood Count Auto Diff 02/28/25 F32.A - Depression, unspecified, I10 - Essential (primary) hypertension, R94.39 - Abnormal result of other cardiovascular function study, Z13.0 - Encounter for screening for diseases of the blood and blood-forming organs and certain disorders involving the immune mechanism, Z13.228 - Encounter for screening for other metabolic disorders Comprehensive Met. Panel 02/28/25 F32.A - Depression, unspecified, I10 - Essential (primary) hypertension, R94.39 - Abnormal result of other cardiovascular function study, Z13.0 - Encounter for screening for diseases of the blood and blood-forming organs and certain disorders involving the immune mechanism, Z13.228 - Encounter for screening for other metabolic disorders Lipid Panel 02/28/25 F32.A - Depression, unspecified, I10 - Essential (primary) hypertension, R94.39 - Abnormal result of other cardiovascular function study, Z13.0 - Encounter for screening for diseases of the blood and blood-forming organs and certain disorders involving the immune mechanism, Z13.228 - Encounter for screening for other metabolic disorders TSH reflex Free T4 02/28/25 F32.A - Depression, unspecified, I10 - Essential (primary) hypertension, R94.39 - Abnormal result of other cardiovascular function study, Z13.0 - Encounter for screening for diseases of the blood and blood-forming organs and certain disorders involving the immune mechanism, Z13.228 - Encounter for screening for other metabolic disorders Prostate Specific Antigen 02/28/25 F32.A - Depression, unspecified, I10 - Essential (primary) hypertension, R94.39 - Abnormal result of other cardiovascular function study, Z13.0 - Encounter for screening for diseases of the blood and blood-forming organs and certain disorders involving the immune mechanism, Z13.228 - Encounter for screening for other metabolic disorders Referrals Gastroenterology Referral Z12.11 - Encounter for screening for malignant neoplasm of colon Medications: New fluconazole 150 mg PO DAILY 7 tabs 0RF
[2025-02-28 16:04] VITALS: BP 128/76; PULSE 94; RESP 14; O2SAT 95; BMI 29.2
== END 2025-02-28 16:37 | disposition home or self-care (01) ==
LOC: HO.HMCFM 15:42
PROVIDERS: PCP Internal Medicine; Visit Provider Internal Medicine
DX: Z00.00 Encounter for general adult medical examination without abnormal findings (principal); I10 Essential (primary) hypertension; E78.00 Pure hypercholesterolemia, unspecified

== ENCOUNTER → 2025-02-28 15:41 | Outpatient (BNVA) | payer OTHER, SELFPAY | PROVIDERS: PCP Internal Medicine; Visit Provider Internal Medicine | DX: Z00.00 Encounter for general adult medical examination without abnormal findings (principal); I10 Essential (primary) hypertension; E78.00 Pure hypercholesterolemia, unspecified; Z13.31 Encounter for screening for depression | CPT/HCPCS: 96127 ==

== ENCOUNTER 2025-04-20 09:37 | Outpatient (REF) | payer OTHER, SELFPAY ==
[2025-04-20 11:07] LABS: MANUAL DIFF FLAG NO
[2025-04-20 11:24] LABS: Hematocrit 51.3 % (42.0-52.0); Hemoglobin 17.4 g/dl (14.0-18.0); Imm Gran Abs Auto 0.04 X10*3/uL (0.00-0.03); Imm Gran Pct Auto 0.6 % (0.0-0.4); Lymphocytes Absolute Auto 1.7 X10*3/uL (1.2-4.9); Mean Corpuscular HGB Conc 33.9 g/dl (31.0-36.0); Mean Corpuscular Hemoglobin 32.7 pg (27.0-33.0); Mean Corpuscular Volume 96.4 fL (80.0-98.0); NRBC Abs Auto 0.000 X10*3/uL (0.0-0.012); NRBC Pct Auto 0.0 /100WBC (0.0-0.2); Platelet Count 232 X10*3/uL (160-400); Red Blood Count 5.32 X10*6/uL (4.60-5.80); White Blood Count 7.2 X10*3/uL (4.8-10.8)
[2025-04-20 11:55] LABS: Alanine Aminotransferase 27 U/L (0-40); Albumin Level 4.4 g/dL (3.5-5.0); Alkaline Phosphatase 33 U/L (39-117); Anion Gap 10 (12-20); Aspartate Amino Transferase 29 U/L (5-37); Blood Urea Nitrogen 7 mg/dL (9-16); Calcium 9.5 mg/dL (8.4-10.2); Carbon Dioxide 29 mmol/L (22-29); Chloride 104 mmol/L (96-108); Cholesterol 178 mg/dL (<200); Estimated Glomerular Filt Rate > 60; HDL Cholesterol 45 mg/dL (>40); Potassium 4.6 mmol/L (3.3-5.1); Sodium 138 mmol/L (135-145); Total Protein 6.8 g/dL (6.5-8.0); Triglycerides 100 mg/dL (<150)
[2025-04-20 12:05] LABS: Prostate Specific Antigen 1.34 ng/mL (<0.05-4.0)
[2025-04-27 14:44] LABS: Testosterone, Free 359.3 pg/mL (35.0-155.0)
== END 2025-04-20 09:38 | disposition home or self-care (01) ==
LOC: HO.WFDLDS 09:37
PROVIDERS: Visit Provider Internal Medicine
DX: Z12.5 Encounter for screening for malignant neoplasm of prostate (principal); Z13.0 Encounter for screening for diseases of the blood and blood-forming organs and certain disorders involving the immune mechanism; Z13.228 Encounter for screening for other metabolic disorders; I10 Essential (primary) hypertension; R94.39 Abnormal result of other cardiovascular function study; E34.9 Endocrine disorder, unspecified; F32.A Depression, unspecified
CPT/HCPCS: 36415; 80053; 80061; 84153; 84402; 84403; 84443; 85025